=== PATIENT | female | born 1985 | race Two or more races ===

== ENCOUNTER 2024-07-01 22:29 | Emergency (ER) | payer MEDICAID, SELFPAY ==
[2024-07-01 23:00] VITALS: BP 104/69; PULSE 94; RESP 18; TEMP 36.9; O2SAT 99; BMI 18.5
--- NOTE | 2024-07-02 00:39 | ED_ITS ---
HPI - General Adult General Chief complaint: General Medical Stated complaint: arthritis ran out of medicine Time Seen by Provider: 07/01/24 23:59 Source: patient Mode of arrival: ambulatory Limitations: no limitations History of Present Illness ED Provider: Dr. Sadie Gold HPI narrative: Patient comes to the emergency room requesting a medication refill. Patient arrived couple of weeks ago from [place]. Patient does not have a primary care physician yet. Patient states that she has history of arthritis and fibromyalgia and takes 800 mg of gabapentin 3 times a day. Patient brought with her, this medication bottles to prove that this medication is being prescribed to her. At this time, patient has no other complaints other than she ran out of medication 3 days ago and is having worsening pain in the joints especially around the knees wrists and pelvis. Patient denies any falls Related Data Previous Rx's ?Medication ?Instructions ?Recorded gabapentin 800 mg tablet 800 mg PO TID 30 days #90 tabs 07/02/24 Allergies Allergy/AdvReac Type Severity Reaction Status Date / Time sulfamethoxazole Allergy Rash Verified 07/01/24 23:07 [From ] trimethoprim [From ] Allergy Rash Verified 07/01/24 23:07 Review of Systems Review of Systems: Constitutional : No Weight loss, No Fever, No Chills, No Night Sweats, No Fatigue, No Malaise ENT/Mouth : No Hearing loss, No Ear Pain, No Nasal Congestion, No Sinus Pain, No Hoarseness, No sore throat, No Rhinorrhea, No Swallowing Difficulty Eyes: No Eye Pain, No Swelling, No Redness, No Foreign Body, No Discharge, No Vision Changes Cardiovascular : No Chest Pain, No SOB, No Dyspnea on Exertion, No Orthopnea, No Edema, No Palpitations Respiratory : No Cough, No Sputum, No Wheezing, No Smoke Exposure, No Dyspnea Gastrointestinal : No Nausea, No Vomiting, No Diarrhea, No Constipation, No abdominal Pain, No Hematochezia, No Melena Genitourinary : no irregular bleeding, No Dysuria, No Urinary Frequency, No Hematuria, No Urinary Incontinence, No Urgency, No Flank Pain, No Urinary Flow Changes, No Hesitancy Musculoskeletal : Complaining of pain in both knees, wrists and pelvic region, No Myalgias, No Joint Swelling Skin : No Skin Lesions, No rash Neuro : No Weakness, No Numbness, No Paresthesias, No Loss of Consciousness, No Dizziness, No Headache Psych : No Anxiety/Panic, No Depression, No SI/HI/AH/VH, No Social Issues, Heme/Lymph: No Bruising, No Bleeding,No Lymphadenopathy Endocrine : No Polyuria, No Polydipsia, No Temperature Intolerance [facility] Past Medical History Medical History (Updated 07/02/24 @ 00:44 by Sadie Gold MD) Arthritis Fibromyalgia Social History Social History Advance Directives: No Advance Directives Information Provided: No Physical Exam ED Vital Signs: Vital Signs - 24 hr 07/01/24 23:00 Temperature 98.4 F Pulse Rate 94 Respiratory Rate 18 Blood Pressure 104/69 Pulse Oximetry 99 Oxygen Delivery Method Room Air BMI result Body Mass Index 18.5 Const Other: Appearance: Alert. Oriented X3. No acute distress. Eyes: Pupils equal, round and reactive to light. ENT: Pharynx normal. Neck: Normal inspection. Neck supple. No lymph nodes noted. No crepitus CVS: Normal heart rate and rhythm. Pulses normal. Normal S1 and S2 Respiratory: No respiratory distress. Breath sounds normal. No Wheezing. No rales Abdomen: Soft and nontender. No rigidity. No distention. Skin: Skin warm and dry. Normal skin color. Normal skin turgor. Extremities: No lower extremity edema. No Lacerations. No Rash Neuro: Oriented X 3. No motor deficit. No sensory deficit. Moving all extremities. No slurred speech. CN 2 through 12 grossly intact Psych: calm, cooperative, normal affect Medical Decision Making Medical Decision Making MDM Narrative: Patient does not have any swollen or erythematous joints -patient does have a previous bottles to show that she is taking gabapentin 100 mg t.i.d. -patient is waiting to be seen by a PCP, it may be months. -patient states that in the meantime, she is trying to straighten up her insurance Differential Diagnosis Differential Diagnoses: The differential diagnosis associated with the presentation includes (Fibromyalgia, arthritis) Discharge Plan Discharge Clinical Impression: Medication refill Patient Disposition: Home, Self-Care Instructions: Medicine Refill (ED) Additional Instructions: Please follow-up with your primary care physician tomorrow. If you have any worsening or new symptoms, please return to the emergency room or call 911 Prescriptions: New gabapentin 800 mg tablet 800 mg PO TID 30 Days Qty: 90 0RF Print Language: Irish
[2024-07-02] MEDS: Gabapentin 400 MG CAPSULE 800 MG PO (01:06)
[2024-07-02 01:31] VITALS: BP 102/68; PULSE 90; RESP 18; TEMP 36.9; O2SAT 99
== END 2024-07-02 01:07 | disposition home or self-care (01) ==
PROVIDERS: Emergency Provider Emergency Medicine
DX: M79.7 Fibromyalgia (principal); Z76.0 Encounter for issue of repeat prescription
CPT/HCPCS: 99283

== ENCOUNTER 2024-09-03 09:32 | Emergency (ER) | payer MEDICAID, SELFPAY ==
[2024-09-03 10:03] VITALS: BP 101/68; PULSE 94; RESP 20; TEMP 36.8; O2SAT 99; BMI 25.7
[2024-09-03 10:16] LABS: MANUAL DIFF FLAG NO
[2024-09-03 10:19] LABS: Basophils Percent Auto 0.5 % (0-2); Eosinophils Percent Auto 0.1 % (0-4); Hematocrit 34.6 % (37.0-47.0); Hemoglobin 11.9 g/dl (12.0-16.0); Imm Gran Abs Auto 0.03 X10*3/uL (0.00-0.03); Imm Gran Pct Auto 0.3 % (0.0-0.4); Lymphocytes Absolute Auto 1.4 X10*3/uL (1.2-4.9); Lymphocytes Percent Auto 15.7 % (20-40); Mean Corpuscular HGB Conc 34.4 g/dl (31.0-35.0); Mean Corpuscular Hemoglobin 29.2 pg (27.0-33.0); Mean Corpuscular Volume 84.8 fL (80.0-98.0); Mean Platelet Volume 8.9 fL (9.4-12.3); Monocytes Absolute Auto 0.4 X10*3/uL (0.1-1.2); Monocytes Percent Auto 4.5 % (2-11); Neutrophils Absolute Auto 6.9 x10*3/uL (2.0-8.3); Neutrophils Percent Auto 78.9 % (45-73); Platelet Count 328 X10*3/uL (160-400); Red Blood Count 4.08 X10*6/uL (4.20-5.50); Red Cell Distribution Width 16.7 % (11.0-16.0); White Blood Count 8.7 X10*3/uL (4.8-10.8)
[2024-09-03 10:34] LABS: Alanine Aminotransferase 24 U/L (0-31); Albumin Level 4.3 g/dL (3.5-5.0); Alkaline Phosphatase 70 U/L (39-117); Anion Gap 15 (12-20); Aspartate Amino Transferase 18 U/L (5-31); Bilirubin Total 0.3 mg/dL (0.0-1.0); Blood Urea Nitrogen 11 mg/dL (9-16); Calcium 8.9 mg/dL (8.4-10.2); Carbon Dioxide 23 mmol/L (22-29); Chloride 104 mmol/L (96-108); Creatinine Clr Calc Pharmacy 111.2; Estimated Glomerular Filt Rate > 60; Glucose Random 109 mg/dL (60-115); Potassium 3.3 mmol/L (3.3-5.1); Sodium 139 mmol/L (135-145); Total Protein 7.5 g/dL (6.5-8.0)
[2024-09-03 11:02] LABS: Influenza A PCR NEGATIVE (Negative); Influenza B PCR NEGATIVE (Negative); Resp Syncy Virus RNA Qual PCR NEGATIVE (Negative); SARS COV2 PCR INHOUSE NEGATIVE (Negative)
[2024-09-03 12:32] LABS: Lipase 12 U/L (8-78)
[2024-09-03 12:40] LABS: HCG Quantitative < 2 mIU/mL
--- NOTE | 2024-09-03 14:05 | ED_ITS ---
HPI - Nausea/Vomiting/Diarrhea General Chief complaint: Nausea/Vomiting/Diarrhea Stated complaint: Abd pain, vomiting Time Seen by Provider: 09/03/24 14:28 Source: patient and tooling engineering tech Mode of arrival: ambulatory Limitations: language barrier History of Present Illness ED Provider: Oswaldo HPI Narrative: Patient is a 30-year-old Norwegian-speaking female presenting to the emergency department with complaint of generalized abdominal pain, nausea, vomiting and diarrhea for the past 3 days due to running out of her prescription for gabapentin. States that she takes gabapentin for arthritis pain and has been on this for many years. States that she recently moved here from [place] and has had difficulty establishing care with a primary care provider. States she has an appointment with a new PCP on Monday. She is requesting a refill of her gabapentin to get her to Monday. She states that the nausea, vomiting and diarrhea are typical symptoms for her when she is not able to take the gabapentin. Denies fever, hematochezia, melena, hematemesis. Denies any urinary symptoms. MD elicited complaint: nausea, vomiting and diarrhea Onset (ago): day(s) Related Data Previous Rx's ?Medication ?Instructions ?Recorded gabapentin 800 mg tablet 800 mg PO TID 30 days #90 tabs 07/02/24 gabapentin 800 mg tablet 800 mg PO TID #10 tabs 09/03/24 Allergies Allergy/AdvReac Type Severity Reaction Status Date / Time sulfamethoxazole Allergy Rash Verified 09/03/24 10:05 [From ] trimethoprim [From ] Allergy Rash Verified 09/03/24 10:05 Review of Systems 2 Review of Systems: as per hpi Yes all other systems are reviewed and are negative Constitutional: Constitutional: Reports as per HPI [facility] Past Medical History Medical History (Updated 09/03/24 @ 15:55 by Shirley Chacon NP) Arthritis Fibromyalgia Social History Social History Advance Directives: No Advance Directives Information Provided: Yes Physical Exam 2 Vital Signs: Vital Signs: Last Vital Signs Temp 98.8 F 09/03/24 14:17 Pulse 100 09/03/24 14:17 Resp 16 09/03/24 14:17 BP 112/71 09/03/24 14:17 Pulse Ox 98 09/03/24 14:17 O2 Del Method Room Air 09/03/24 14:17 BMI result Body Mass Index 25.7 Vital signs have been reviewed and appear to be correct. Blood pressure normal. Heart rate normal. Respiratory rate normal. Temperature normal. Oxygen saturation normal. Const: General: cooperative, healthy appearing and no acute distress O rientation/consciousness: oriented to person, oriented to place, oriented to time and patient oriented x3 Limitations: no limitations HEENT: Head: Yes normocephalic and Yes atraumatic Ears: external ears normal General nose exam: Normal external nose present Face and sinus: Yes face symmetric Mouth: oropharynx normal and moist mucous membranes Throat: Yes uvula midline Eyes: Pupils: Equal, round and reactive pupils present Neck: Neck: Yes normal visual inspection and Yes supple Resp: Effort & Inspection: normal respiratory effort and able to speak in complete sentences Auscultation: clear to auscultation bilaterally Cardio: Rate: regular rate Rhythm: regular rhythm Heart sounds: S1 normal heart sound present and S2 normal heart sound present GI: Palpation (GI): Soft to palpation and nontender Auscultation: n ormoactive bowel sounds : General: Yes no CVA tenderness Back/Spine/Pelvis: Back: no CVA tenderness Skin: General skin exam: elasticity normal and turgor normal Neuro: General: oriented to person, oriented to place, oriented to time, patient oriented x3, moves all extremities, no focal motor deficits and CN's II- XI intact bilaterally Cranial nerves: Yes Equal, round and reactive pupils present Cognition (Neuro): normal cognition Extrem: General: Yes full ROM, Yes no pedal edema and Yes no calf tenderness Psych: Mental Status: mental status grossly normal Affect: normal affect Thought process: Normal thought process present Course Course Course Narrative: This is an RME: Additional HPI, ROS, PE not included below will be deferred to primary provider. RME assessment and note performed by: Reva Bruno PA-C This is a [id number]-female who presents to the ER with complaints of nausea, vomiting, diarrhea, and abdominal pain x 3 days. She is on gabapetin chronically and ran out, will be able to fill on . Plan: Labs, UA, further Er eval needed. Medicated with zofran Medications Administered Discontinued Medications Generic Name Dose Route Start Last Admin Trade Name Freq PRN Reason Stop Dose Admin Gabapentin 800 mg 09/03/24 15:11 09/03/24 15:22 Gabapentin 400 Mg Capsule PO 09/03/24 15:12 800 mg ONCE ONE Administration Ondansetron HCl 4 mg 09/03/24 14:04 09/03/24 14:06 Ondansetron Odt 4 Mg Tab.Mitchell REYNA 09/03/24 14:05 4 mg ONCE ONE Administration Medical Decision Making Medical Decision Making [facility] Narrative: Patient is a 30-year-old Norwegian-speaking female presenting to the emergency department with complaint of generalized abdominal pain, nausea, vomiting and diarrhea for the past 3 days due to running out of her prescription for gabapentin. On exam patient is awake, A+Ox3, VS WNL, afebrile, normal neurological exam without focal deficits, physical exam findings as above. Given reported symptoms and physical exam findings, initial differential includes medication withdrawal, gastritis, gastroenteritis, medication refill. Labs unremarkable and viral serology negative. Review of [employer] shows patient last filled a prescription for gabapentin on 08/20. Will send prescription to get patient through until Monday. Return precautions discussed. Patient verbalized understanding of and agreement with plan. Differential Diagnosis Differential Diagnoses: The differential diagnosis associated with the presentation includes As per MDM. Lab Data [facility] Lab Attestation statement: I reviewed the patient's lab results. As per [facility]. 09/03/24 10:12 09/03/24 10:12 Labs: Lab Results 09/03/24 Range/Units 10:12 WBC 8.7 (4.8-10.8) X10*3/uL RBC 4.08 L (4.20-5.50) X10*6/uL Hgb 11.9 L (12.0-16.0) g/dl Hct 34.6 L (37.0-47.0) % MCV 84.8 (80.0-98.0) fL MCH 29.2 (27.0-33.0) pg MCHC 34.4 (31.0-35.0) g/dl RDW 16.7 H (11.0-16.0) % Plt Count 328 (160-400) X10*3/uL MPV 8.9 L (9.4-12.3) fL Immature Gran % (Auto) 0.3 (0.0-0.4) % Neut % (Auto) 78.9 H (45-73) % Lymph % (Auto) 15.7 L (20-40) % [place] % (Auto) 4.5 (2-11) % Eos % (Auto) 0.1 (0-4) % Baso % (Auto) 0.5 (0-2) % Lymph # (Auto) 1.4 (1.2-4.9) X10*3/uL [place] # (Auto) 0.4 (0.1-1.2) X10*3/uL Eos # (Auto) 0.0 (0.0-0.4) X10*3/uL Baso # (Auto) 0.0 (0.0-0.2) X10*3/uL Abs Immat Gran (auto) 0.03 (0.00-0.03) X10*3/uL Absolute Neuts (auto) 6.9 (2.0-8.3) x10*3/uL Absolute Nucleated RBC 0.000 (0.0-0.012) X10*3/uL Nucleated RBC % (auto) 0.0 (0.0-0.2) /100WBC Sodium 139 (135-145) mmol/L Potassium 3.3 (3.3-5.1) mmol/L Chloride 104 (96-108) mmol/L Carbon Dioxide 23 (22-29) mmol/L Anion Gap 15 (12-20) BUN 11 (9-16) mg/dL Creatinine 0.65 (0.5-1.4) mg/dL Estim Creat Clear Calc 111.2 Estimated GFR > 60 Random Glucose 109 (60-115) mg/dL Calcium 8.9 (8.4-10.2) mg/dL Total Bilirubin 0.3 (0.0-1.0) mg/dL AST 18 (5-31) U/L ALT 24 (0-31) U/L Alkaline Phosphatase 70 (39-117) U/L Total Protein 7.5 (6.5-8.0) g/dL Albumin 4.3 (3.5-5.0) g/dL Lipase 12 (8-78) U/L Beta HCG, Quant < 2 mIU/mL Influenza Type A (PCR) NEGATIVE (Negative) Influenza Type B (PCR) NEGATIVE (Negative) RSV RNA Qual (PCR) NEGATIVE (Negative) SARS-CoV-2 RNA (RT-PCR) NEGATIVE (Negative) External Record Review External record reviewed: Inpatient record, Office record and Outpatient record Prescription Management I considered prescription management with: Pain Medication Discharge Plan Discharge Clinical Impression: Medication refill Patient Disposition: Home, Self-Care Instructions: Medicine Refill (ED) Additional Instructions: You presented to the emergency department today requesting refill of gabapentin. A prescription was sent to the pharmacy to cover you until you see your new primary care provider on Monday. Return to the emergency department with new or concerning symptoms. Prescriptions: New gabapentin 800 mg tablet 800 mg PO TID Qty: 10 0RF No Action gabapentin 800 mg tablet 800 mg PO TID 30 Days Qty: 90 0RF Print Language: Norwegian
[2024-09-03] MEDS: Ondansetron ODT 4 MG TAB.RAPDIS TRANSLINGU (14:06)
[2024-09-03 14:17] VITALS: BP 112/71; PULSE 100; RESP 16; TEMP 37.1; O2SAT 98
[2024-09-03] MEDS: Gabapentin 400 MG CAPSULE 800 MG PO (15:22)
[2024-09-03 16:11] VITALS: BP 110/68; PULSE 81; RESP 16; TEMP 36.6; O2SAT 100
[2024-09-03 16:17] VITALS: BP 110/68; PULSE 81; RESP 16; TEMP 36.6; O2SAT 100
== END 2024-09-03 16:17 | disposition home or self-care (01) ==
PROVIDERS: Physician Assistant Medical; Emergency Provider Emergency Medicine
DX: R10.9 Unspecified abdominal pain (principal); R11.2 Nausea with vomiting, unspecified; R19.7 Diarrhea, unspecified; Z76.0 Encounter for issue of repeat prescription; Z03.818 Encounter for observation for suspected exposure to other biological agents ruled out
CPT/HCPCS: 0241U; 80053; 83690; 84702; 85025; 99283

== ENCOUNTER 2024-09-10 08:52 | Outpatient (REF) | payer MEDICAID, SELFPAY ==
[2024-09-10 11:38] LABS: Anion Gap 10 (12-20); Blood Urea Nitrogen 8 mg/dL (9-16); C Reactive Protein < 0.10 mg/dL (< or = 0.50); Calcium 8.6 mg/dL (8.4-10.2); Carbon Dioxide 27 mmol/L (22-29); Chloride 104 mmol/L (96-108); Cholesterol 184 mg/dL (<200); Estimated Glomerular Filt Rate > 60; Glucose Random 88 mg/dL (60-115); HDL Cholesterol 38 mg/dL (>40); LDL Cholesterol Calculated 115 mg/dL (<100); Potassium 3.7 mmol/L (3.3-5.1); Sodium 137 mmol/L (135-145); Triglycerides 159 mg/dL (<150)
[2024-09-10 11:50] LABS: Syphilis Screen Nonreactive (Nonreactive)
[2024-09-10 11:53] LABS: Erythrocyte Sedimentation Rate 18 MM/HR (0-20)
[2024-09-10 11:53] LABS: HBS Num1 4.62 mIU/mL (0-7.99); HBc Num1 0.13 S/CO (0.00-0.79); HBsAGNum1 0.46 S/CO (0.00-0.99); HIV AB/AG Nonreactive (Nonreactive); HIV Num 1 0.05 S/CO (0.00-0.99); Hepatitis B Core Antibody Nonreactive (Nonreactive); Hepatitis B Surface Antigen Negative (Negative); ~HepC Num1 0.33 S/CO (0.00-0.79); ~Hepatitis B Surface Antibody NONREACTIVE (Nonreactive); ~Hepatitis C Antibody Nonreactive (Nonreactive)
[2024-09-10 13:42] LABS: Rheumatoid Factor 13.5 IU/mL (<15.0)
[2024-09-13 14:38] LABS: Cyclic Citrullinated Peptide <16 UNITS
== END 2024-09-10 08:53 | disposition home or self-care (01) ==
LOC: HO.HHCL 08:52
PROVIDERS: Visit Provider Registered Nurse
DX: Z00.00 Encounter for general adult medical examination without abnormal findings (principal); Z11.3 Encounter for screening for infections with a predominantly sexual mode of transmission; M25.50 Pain in unspecified joint
CPT/HCPCS: 36415; 80048; 80061; 85652; 86140; 86200; 86431; 86704; 86706; 86780; 86803; 87340; 87389

== ENCOUNTER 2024-11-01 18:02 | Outpatient (REF) | payer MEDICAID, SELFPAY | END 2024-11-01 18:03 | disposition home or self-care (01) | LOC: HO.HHCLNP 18:02 | DX: J02.9 Acute pharyngitis, unspecified (principal) | CPT/HCPCS: 87070 ==

== ENCOUNTER 2024-11-15 17:34 | Outpatient (REF) | payer MEDICAID, SELFPAY ==
[2024-11-16 12:00] LABS: Bacterial Vaginosis PCR POSITIVE (Negative); Candida Group PCR NOT DETECTED (Not Detect); Candida glab krusei PCR NOT DETECTED (Not Detect); Trichomonas vaginalis PCR NOT DETECTED (Not Detect)
[2024-11-21 10:45] LABS: HPV Genotype 16 Negative (Negative); HPV Genotype 18 Negative (Negative); HPV High Risk Positive (Negative)
[2024-11-23 03:44] LABS: C. trachomatis RNA TMA Not Detected (Not Detected); N. gonorrhoeae RNA TMA Not Detected (Not Detected); Trichomonas (NAAT) Not Detected (Not Detected)
== END 2024-11-15 17:35 | disposition home or self-care (01) ==
LOC: HO.HHCLNP 17:34
PROVIDERS: Visit Provider Registered Nurse
DX: Z12.4 Encounter for screening for malignant neoplasm of cervix (principal)
CPT/HCPCS: 81515; 87491; 87591; 87626; 87661; 88175